=== PATIENT | female | born 1965 | race Caucasian/White ===

== ENCOUNTER 2016-11-06 13:50 | Emergency (ER) | payer OTHER ==
--- NOTE | 2016-11-06 14:01 | CPEKG ---
Heart Rate: 62 RR Interval: 968 P-R Interval: 124 QRSD Interval: 98 QT Interval: 428 QTC Interval: 435 P [place]: 58 QRS [place]: 57 T Wave [place]: 46 EKG Severity - NORMAL ECG - EKG Impression: SINUS RHYTHM Electronically Signed By: Abdoulaye Garcia 06-Nov-2016 22:52:00
[2016-11-06 14:03] VITALS: TEMP 97.3; O2SAT 99
[2016-11-06 14:46] LABS: % IMMATURE GRANULYOCYTES 0.5 % (0.0-1.1); ABSOLUTE IMMATURE GRANULOCYTES 0.03 10^3/uL (0.00-0.10); ADD DIFF? NO; ADD MORPH? NO; ADD SCAN? NO; ATYPICAL LYMPHOCYTE FLAG 10 (0-99); FRAGMENT RBC FLAG 0 (0-99); HEMOGLOBIN 14.8 g/dL (12.6-16.3); LEFT SHIFT FLG 0 (0-99); LIPEMIA HEMOLYSIS FLAG 80 (0-99); MEAN CELL HEMOGLOBIN 30.1 pg (27.9-34.1); MEAN CELL HEMOGLOBIN CONCENTR. 33.6 g/dL (32.4-36.7); MEAN CELL VOLUME 89.4 fL (81.5-99.8); MEAN PLATELET VOLUME 10.3 fL (8.7-11.7); PLATELET CLUMPS FLAG 0 (0-99); PLATELET COUNT 244 10^3/uL (150-400); RED BLOOD CELL COUNT 4.92 10^6/uL (4.18-5.33); RED CELL DISTRIBUTION WIDTH 12.9 % (11.5-15.2)
[2016-11-06 14:51] LABS: ANION GAP 14 mEq/L (8-16); CALCIUM 9.3 mg/dL (8.5-10.4); CARBON DIOXIDE 26 mEq/l (22-31); CHLORIDE 102 mEq/L (97-110); CREATININE 0.7 mg/dL (0.6-1.0); GLOMERULAR FILTRATION RATE > 60; GLUCOSE 98 mg/dL (70-100); POTASSIUM 3.8 mEq/L (3.5-5.2); SODIUM 142 mEq/L (134-144)
[2016-11-06 15:05] LABS: TROPONIN I < 0.012 ng/mL (0-0.034)
[2016-11-06] MEDS ORDERED: MAG HYDROX/AL HYDROX/SIMETH 30 ML UDCUP PO ONE (16:27)
--- NOTE | 2016-11-06 16:30 | UCPHY ---
H & P Patient Type: Established Chief Complaint Nursing Narrative: intermittent chest tightness x 6 weeks, worse in intensity and frequency the last 2 days. denies any other complaints Time Seen by Provider: 11/06/16 14:54 HPI/ROS: This patient has chest tightness. She describes this as intermittent. It has been slightly more frequent over the past 2 days. She describes this as substernal location today for the 1st time it briefly radiates to her back that has resolved. Peak intensity is 4/10. Currently has resolved. [place]. Of time for the discomfort was 2 hours. At times it is only about 2 minutes at a time. She notes no clear exacerbating factors except that seems to be worse at night in the morning when she 1st gets up and then reduces during the day. No pain with exertion. She does recall having had this in the past. She does admit some mild burning GERD intermittently associated with her symptoms. ROS: No fevers or chills. No significant fatigue. No other constitutional symptoms. HEENT: No recent URI symptoms. No other complaints. Pulmonary: No pleuritic pain. No coughing. No shortness of breath. Cardiovascular: No heart palpitations, jaw or arm pain, lightheadedness, lower extremity swelling or calf pain. GI: No nausea or vomiting. She has had intermittent mild diaphoresis at night that she attributes to her perimenopausal status. : No complaints musculoskeletal: No injuries or other musculoskeletal complaints. Endocrine: No complaints integumentary: No skin rash neuro: No focal neuro complaints. 10 point ROS is otherwise negative Source: Patient Exam Limitations: No limitations - Personal History LMP (Females 10-55): Hysterectomy - Medical/Surgical History PMH: Hypothyroid Perforated ulcer Brain AVM with surgical repair and no residual neuro deficits Family history is negative for premature coronary artery disease. Hx Asthma: No Hx Chronic Respiratory Disease: No Hx Diabetes: No Hx Cardiac Disease: No Hx Renal Disease: No Hx Cirrhosis: No Hx Alcoholism: No Hx HIV/AIDS: No Hx Splenectomy or Spleen Trauma: No Other PMH: hypothyroid - Family History Significant Family History: No pertinent family hx - Social History Smoking Status: Never smoked Alcohol Use: Rarely Drug Use: None - Physical Exam Exam: Vital signs: Normal General Appearance: Alert, no distress. Eyes: Pupils equal and round no pallor or injection. ENT, Mouth: Mucous membranes moist. Respiratory: There are no retractions, lungs are clear to auscultation. Cardiovascular: Regular rate and rhythm. No murmur gallop rub. No JVD. No peripheral edema. No calf swelling or tenderness. No chest wall tenderness. Gastrointestinal: Abdomen is soft and nontender, no masses, bowel sounds normal. Neurological: GCS 15. No sensory or motor deficits noted Skin: Warm and dry, no rashes. Extremities are symmetrical, full range of motion. Psychiatric: Mood and affect are normal DIFFERENTIAL DIAGNOSIS: After history and physical exam differential diagnosis was considered for GERD, esophageal spasm, pneumonia, pneumothorax, mi, doubt PE Constitutional: Initial Vital Signs Temperature (C) 36.3 C 11/06/16 14:01 Heart Rate 71 11/06/16 14:01 Respiratory Rate 18 11/06/16 14:01 Blood Pressure 123/83 H 11/06/16 14:01 O2 Sat (%) 99 11/06/16 14:01 O2 Delivery Mode Room Air Allergies/Adverse Reactions: No Known Allergies Allergy (Unverified 01/26/15 11:01) Home Medications: Medication Instructions Recorded Levothyroxine [Synthroid 75 mcg 75 mcg PO DAILY06 01/26/15 (*)] Pantoprazole Sodium [Protonix 40mg 40 mg PO DAILY #30 tab 11/06/16 (*)] Medical Decision Making - Diagnostics EKG Interpretation: 12 lead EKG: Performed at 1:59 p.m. Sinus rhythm at 62 Intervals: Normal throughout [place]: Normal throughout ST segments: Normal throughout Overall assessment normal EKG for complete read please refer to trace master. Imaging: Imaging Impressions Chest X-Ray 11/06/16 15:07 Impression: Air trapping versus excellent inspiration. Is there any wheezing? Chest x-ray: Read by the radiologist, reviewed by myself ED Course/Re-evaluation: IV, monitor, aspirin, she remained free of any discomfort while here Maalox with mild improvement I reviewed her labs reveal normal CBC, metabolic panel and normal troponin. Discussion: Patient with no major risk factors for coronary disease, PE and a benign workup here. I suspect that she has GERD with potential esophageal spasm but I explained her that we will only the initial workup. That she warrants outpatient follow up with Cardiology for further evaluation. Suggested that she start a proton pump inhibitor and have a bland diet. She understands the need to go the emergency department should she have any significant recurrence of her symptoms despite the treatment plan - Data Points Laboratory Results: Laboratory Results 11/06/16 14:05 11/06/16 14:05 11/06/16 11/06/16 14:05 14:05 WBC 6.11 10^3/uL 10^3/uL (3.80-9.50) RBC 4.92 10^6/uL 10^6/uL (4.18-5.33) Hgb 14.8 g/dL g/dL (12.6-16.3) Hct 44.0 % % (38.0-47.0) MCV 89.4 fL fL (81.5-99.8) MCH 30.1 pg pg (27.9-34.1) MCHC 33.6 g/dL g/dL (32.4-36.7) RDW 12.9 % % (11.5-15.2) Plt Count 244 10^3/uL 10^3/uL (150-400) MPV 10.3 fL fL (8.7-11.7) Neut % (Auto) 55.1 % % (39.3-74.2) Lymph % (Auto) 35.2 % % (15.0-45.0) [place] % (Auto) 6.7 % % (4.5-13.0) Eos % (Auto) 1.5 % % (0.6-7.6) Baso % (Auto) 1.0 % % (0.3-1.7) Nucleat RBC Rel Count 0.0 % % (0.0-0.2) Absolute Neuts (auto) 3.37 10^3/uL 10^3/uL (1.70-6.50) Absolute Lymphs (auto) 2.15 10^3/uL 10^3/uL (1.00-3.00) Absolute Monos (auto) 0.41 10^3/uL 10^3/uL (0.30-0.80) Absolute Eos (auto) 0.09 10^3/uL 10^3/uL (0.03-0.40) Absolute Basos (auto) 0.06 10^3/uL 10^3/uL (0.02-0.10) Absolute Nucleated RBC 0.00 10^3/uL 10^3/uL (0-0.01) Immature Gran % 0.5 % % (0.0-1.1) Immature Gran # 0.03 10^3/uL 10^3/uL (0.00-0.10) Sodium 142 mEq/L mEq/L (134-144) Potassium 3.8 mEq/L mEq/L (3.5-5.2) Chloride 102 mEq/L mEq/L (97-110) Carbon Dioxide 26 mEq/l mEq/l (22-31) Anion Gap 14 mEq/L mEq/L (8-16) BUN 15 mg/dL mg/dL (7-23) Creatinine 0.7 mg/dL mg/dL (0.6-1.0) Estimated GFR > 60 Glucose 98 mg/dL mg/dL (70-100) Calcium 9.3 mg/dL mg/dL (8.5-10.4) Troponin I < 0.012 ng/mL ng/mL (0-0.034) Medications Given: Discontinued Medications Al Hydroxide/Mg Hydroxide (Maalox Susp) 30 ml PO EDNOW ONE Stop: 11/06/16 16:28 Last Admin: 11/06/16 16:45 Dose: 30 ml Departure - Departure Disposition: Home, Routine, Self-Care Clinical Impression: Chest pain Qualifiers: Chest pain type: unspecified Qualified Code(s): R07.9 - Chest pain, unspecified Condition: Good Instructions: Chest Pain (ED), Gastroesophageal Reflux Disease (ED) Additional Instructions: Diagnosis: Chest pain Your EKG, chest x-ray and labs today are normal Plan: Try Protonix or Prilosec and Maalox. [place] diet to feel improved Call Dr. Ga-[employer]ode miner arrange for further work-up as an outpatient. Go to the emergency department if he has any significant worsening despite the treatment plan. Referrals: NONE *PRIMARY CARE P,. [Primary Care Provider] - As per Instructions Prescriptions: Pantoprazole Sodium [Protonix 40mg (*)] 40 mg PO DAILY #30 tab - PQRS PQRS Measurement: NA
[2016-11-06 16:50] VITALS: BP 125/83; PULSE 56; RESP 16
== END 2016-11-06 16:48 | disposition home or self-care (01) ==
LOC: CED 13:50
DX: R07.9 Chest pain, unspecified (principal)
CPT/HCPCS: 71020-PO; 80048-PO; 84484-PO; 85025-PO; 99215-PO; G0463-PO

== ENCOUNTER → 2017-05-19 | Outpatient (CLI) | payer OTHER | LOC: FIMAGING 12:03 | PROVIDERS: ATTEND Obstetrics & Gynecology | DX: Z12.31 Encounter for screening mammogram for malignant neoplasm of breast (principal); Z80.3 Family history of malignant neoplasm of breast | CPT/HCPCS: G0202 ==

== ENCOUNTER → 2018-07-13 | Outpatient (CLI) | payer OTHER | LOC: FIMAGING 08:47 | PROVIDERS: ATTEND Obstetrics & Gynecology | DX: Z12.31 Encounter for screening mammogram for malignant neoplasm of breast (principal); Z13.820 Encounter for screening for osteoporosis; M85.89 Other specified disorders of bone density and structure, multiple sites; Z78.0 Asymptomatic menopausal state ==

== ENCOUNTER → 2019-01-08 | Outpatient (CLI) | payer OTHER | LOC: FIMAGING 09:39 ==